=== PATIENT | male | born 1975 | race African-American/Black ===

== ENCOUNTER 2018-03-27 08:23 | Observation (INO) ==
[2018-03-27 09:21] LABS: Basophils % 0.3 % (0.0-0.8); Eosinophils # 0.1 10*3/uL (0.0-0.87); Eosinophils % 1.1 % (0.00-10.9); Hematocrit 43.4 VOL% (42.0-52.0); Hemoglobin 15.5 GM/DL (14.0-18.0); Immature Granulocytes % 0.3 %; Immature Granulocytes Absolute 0.02 #; Lymphocytes # 1.7 10*3/uL (1.4-4.0); Lymphocytes % 24.5 % (21.2-54.2); Mean Corpuscular HGB Conc 35.7 GM/DL (32-36); Mean Corpuscular Hemoglobin 33 PG (27-34); Mean Corpuscular Volume 91.6 FL (87-102); Mean Platelet Volume 9.2 FL (9.6-12.0); Monocytes # 0.8 10*3/uL (0.11-0.8); Monocytes % 10.8 % (1.7-12.7); Neutrophils # 4.4 10*3/uL (1.4-7.4); Platelet Count 250 T/CUMM (130-400); Red Blood Count 4.74 MC/CUMM (3.8-5.5)
[2018-03-27 09:26] LABS: PT Patient Result 10.5 SECS; Partial Thromboplastin Time 27.2 SECS (0-40)
[2018-03-27 09:35] LABS: Alanine Aminotransferase 25 U/L (16-61); Albumin 3.8 G/DL (3.4-5.0); Alkaline Phosphatase 58 U/L (45-117); Aspartate Amino Transferase 24 U/L (0-37); Blood Urea Nitrogen 14 MG/DL (7-18); Calcium 9.3 MG/DL (8.5-10.1); Glucose 103 MG/DL (74-106); Osmolality,Calculated 281.3 MOS/KG (273-304); Potassium 3.8 MMOL/L (3.5-5.1); Sodium 141 MMOL/L (136-145); Total Protein 7.1 G/DL (6.4-8.3); Troponin I Only < 0.015 NG/ML (0.00-0.045)
[2018-03-27 10:49] LABS: Apearance,Urine CLEAR (Clear); Bilirubin,Urine Negative (Negative); Blood, Urine Negative (Negative); Glucose,Urine (UA) Negative (Negative); Ketones,Urine 20 mg/dL (Negative); Mucus,Urine Occasional /LPF (Occasional); Nitrite,Urine Negative (Negative); Protein,Urine Negative; RBC,Urine 1 /HPF (0-4); Squamous Epithelial Cell,Urine Occasional /HPF (0-10); Urine Color Yellow (Yellow); Urine Specific Gravity 1.011 (1.001-1.035); Urine Urobilinogen < 2.0 EU/DL (0.2-1.0); WBC,Urine <1 /HPF (0-6)
[2018-03-27 10:54] LABS: Barbiturates Screen,Urine Negative (Negative); Benzodiazepines Screen,Urine Negative (Negative); Cannabinoid Screen,Urine Positive (Negative); Opiate Screen,Urine Negative (Negative); Phencyclidine Screen,Urine Negative (Negative)
[2018-03-27] MEDS ORDERED: ONDANSETRON 4 MG/2 ML VIAL IV PRN (12:56)
[2018-03-27 13:46] LABS: Risk Ratio 3.13; VLDL CHOLESTEROL 18.6 MG/DL
[2018-03-27] MEDS: ACETAMINOPHEN 325 MG TABLET PO PRN (19:25)
[2018-03-28 02:14] LABS: Basophils % 0.4 % (0.0-0.8); Eosinophils # 0.1 10*3/uL (0.0-0.87); Eosinophils % 1.8 % (0.00-10.9); Hematocrit 43.8 VOL% (42.0-52.0); Hemoglobin 15.3 GM/DL (14.0-18.0); Immature Granulocytes % 0.3 %; Immature Granulocytes Absolute 0.02 #; Lymphocytes # 2.4 10*3/uL (1.4-4.0); Lymphocytes % 34.4 % (21.2-54.2); Mean Corpuscular HGB Conc 34.9 GM/DL (32-36); Mean Corpuscular Hemoglobin 32 PG (27-34); Mean Corpuscular Volume 92.8 FL (87-102); Mean Platelet Volume 8.8 FL (9.6-12.0); Monocytes # 0.7 10*3/uL (0.11-0.8); Monocytes % 9.7 % (1.7-12.7); Neutrophils # 3.8 10*3/uL (1.4-7.4); Neutrophils % 53.4 % (38.7-73.9); Platelet Count 230 T/CUMM (130-400); Red Blood Count 4.72 MC/CUMM (3.8-5.5); Red Cell Distribution Width 13.2 % (9.3-17.3); White Blood Count 7.1 T/CUMM (4-12)
[2018-03-28 02:23] LABS: Calcium 8.7 MG/DL (8.5-10.1); Osmolality,Calculated 283.1 MOS/KG (273-304)
[2018-03-28] MEDS: ACETAMINOPHEN 325 MG TABLET PO PRN ×2 (03:17→22:00)
[2018-03-28] MEDS: ASPIRIN EC 81 MG TABLET PO SCH (10:26)
[2018-03-28] MEDS: PANTOPRAZOLE 40 MG TABLET PO SCH (10:26)
[2018-03-29 05:18] LABS: Basophils % 0.4 % (0.0-0.8); Eosinophils # 0.2 10*3/uL (0.0-0.87); Eosinophils % 2.5 % (0.00-10.9); Hematocrit 43.5 VOL% (42.0-52.0); Hemoglobin 15.6 GM/DL (14.0-18.0); Immature Granulocytes % 0.3 %; Immature Granulocytes Absolute 0.02 #; Lymphocytes % 30.1 % (21.2-54.2); Mean Corpuscular HGB Conc 35.9 GM/DL (32-36); Mean Corpuscular Hemoglobin 33 PG (27-34); Mean Platelet Volume 9.1 FL (9.6-12.0); Monocytes # 0.7 10*3/uL (0.11-0.8); Monocytes % 9.9 % (1.7-12.7); Neutrophils # 3.8 10*3/uL (1.4-7.4); Neutrophils % 56.8 % (38.7-73.9); Platelet Count 253 T/CUMM (130-400); Red Blood Count 4.78 MC/CUMM (3.8-5.5); Red Cell Distribution Width 13.2 % (9.3-17.3); White Blood Count 6.7 T/CUMM (4-12)
[2018-03-29 05:32] LABS: Calcium 8.6 MG/DL (8.5-10.1); Osmolality,Calculated 282.1 MOS/KG (273-304); Potassium 3.9 MMOL/L (3.5-5.1)
[2018-03-29 07:37] VITALS: BP 123/78
[2018-03-29] MEDS: ASPIRIN EC 81 MG TABLET PO SCH ×2 (08:05→08:06)
[2018-03-29] MEDS: PANTOPRAZOLE 40 MG TABLET PO SCH (08:06)
== END 2018-03-29 11:45 | disposition home or self-care (01) ==
LOC: EDUNIT# → EDBD → N.EDINP 08:23 → N.ED 08:23 → N.5E 11:27 → N.3W 13:53
PROVIDERS: ADMIT Internal Medicine; ATTEND Internal Medicine

== ENCOUNTER 2018-05-19 14:12 | Observation (INO) ==
[2018-05-19 15:19] LABS: Basophils % 0.2 % (0.0-0.8); Eosinophils # 0.1 10*3/uL (0.0-0.87); Eosinophils % 0.9 % (0.00-10.9); Hematocrit 41.5 VOL% (42.0-52.0); Hemoglobin 14.3 GM/DL (14.0-18.0); Immature Granulocytes % 0.4 %; Immature Granulocytes Absolute 0.04 #; Lymphocytes % 11.2 % (21.2-54.2); Mean Corpuscular HGB Conc 34.5 GM/DL (32-36); Mean Corpuscular Hemoglobin 32 PG (27-34); Mean Corpuscular Volume 92.8 FL (87-102); Mean Platelet Volume 8.8 FL (9.6-12.0); Monocytes # 0.8 10*3/uL (0.11-0.8); Monocytes % 8.5 % (1.7-12.7); Neutrophils # 7.2 10*3/uL (1.4-7.4); Neutrophils % 78.8 % (38.7-73.9); Platelet Count 233 T/CUMM (130-400); Red Blood Count 4.47 MC/CUMM (3.8-5.5); White Blood Count 9.1 T/CUMM (4-12)
[2018-05-19 15:28] LABS: INR 0.9; Partial Thromboplastin Time 25.2 SECS (0-40)
[2018-05-19 15:42] LABS: Barbiturates Screen,Urine Negative (Negative); Benzodiazepines Screen,Urine Negative (Negative); Cannabinoid Screen,Urine Positive (Negative); Opiate Screen,Urine Negative (Negative); Phencyclidine Screen,Urine Negative (Negative)
[2018-05-19 15:43] LABS: Alanine Aminotransferase 24 U/L (16-61); Albumin 3.9 G/DL (3.4-5.0); Alkaline Phosphatase 64 U/L (45-117); Aspartate Amino Transferase 21 U/L (0-37); Blood Urea Nitrogen 13 MG/DL (7-18); Calcium 8.7 MG/DL (8.5-10.1); Glucose 101 MG/DL (74-106); Osmolality,Calculated 285.8 MOS/KG (273-304); Sodium 144 MMOL/L (136-145); Total Protein 6.6 G/DL (6.4-8.3)
[2018-05-19] MEDS ORDERED: ASPIRIN EC 325 MG TABLET PO STA (16:20)
[2018-05-19] MEDS ORDERED: ASPIRIN 325 MG TABLET ONE ×2 (16:24→16:26)
[2018-05-19] MEDS ORDERED: ASPIRIN CHEW 81 MG TABLET PO STA (16:26)
[2018-05-19] MEDS ORDERED: ONDANSETRON 4 MG/2 ML VIAL IV PRN (17:09)
[2018-05-19] MEDS ORDERED: LABETALOL 100 MG/20 ML VIAL IV PRN (17:13)
[2018-05-19 18:05] LABS: Risk Ratio 2.63; VLDL CHOLESTEROL 15.2 MG/DL
[2018-05-19] MEDS: ATORVASTATIN 40 MG TABLET PO SCH (20:31)
[2018-05-19] MEDS: SODIUM CHLORIDE 0.9% 1,000 ML IV SCH (20:31)
[2018-05-19] MEDS: ACETAMINOPHEN 325 MG TABLET PO PRN (20:38)
[2018-05-20] MEDS: SODIUM CHLORIDE 0.9% 1,000 ML IV SCH ×2 (04:20→15:57)
[2018-05-20 05:39] LABS: Calcium 8.4 MG/DL (8.5-10.1); Osmolality,Calculated 286.7 MOS/KG (273-304); Potassium 3.9 MMOL/L (3.5-5.1)
[2018-05-20] MEDS: POLYETHYLENE GLYCOL POWDER 17 GM PACK PO SCH (08:11)
[2018-05-20] MEDS: PANTOPRAZOLE 40 MG TABLET PO SCH (08:12)
[2018-05-20] MEDS: ASPIRIN EC 81 MG TABLET PO SCH (08:12)
[2018-05-20] MEDS ORDERED: NITROGLYCERIN SL 0.4 MG TABLET SL ONE (15:29)
[2018-05-20] MEDS: LOSARTAN 25 MG TABLET PO SCH (15:44)
[2018-05-20] MEDS: amLODIPine 5 MG TABLET PO SCH (15:44)
[2018-05-20] MEDS ORDERED: cloNIDine 0.1 MG TABLET PO ONE (15:46)
[2018-05-20] MEDS: ATORVASTATIN 40 MG TABLET PO SCH (21:08)
[2018-05-20] MEDS: ACETAMINOPHEN 325 MG TABLET PO PRN (21:08)
[2018-05-21] MEDS: ASPIRIN EC 81 MG TABLET PO SCH (09:28)
[2018-05-21] MEDS: PANTOPRAZOLE 40 MG TABLET PO SCH (09:29)
[2018-05-21] MEDS: amLODIPine 5 MG TABLET PO SCH (09:29)
[2018-05-21] MEDS: LOSARTAN 25 MG TABLET PO SCH (09:29)
[2018-05-21] MEDS: POLYETHYLENE GLYCOL POWDER 17 GM PACK PO SCH (09:32)
[2018-05-21] MEDS ORDERED: ALUM/MAG/SIMETH/LIDO VISC 1:1 30 ML BOTTLE PO ONE (11:16)
[2018-05-21] MEDS: NITROGLYCERIN SL 0.4 MG TABLET SL PRN ×2 (11:25→11:30)
[2018-05-21] MEDS ORDERED: LOSARTAN 50 MG TABLET PO ONE (11:33)
[2018-05-21] MEDS ORDERED: LOSARTAN 50 MG TABLET ONE (11:35)
[2018-05-21] MEDS ORDERED: CARVEDILOL 12.5 MG TABLET ONE (11:35)
[2018-05-21] MEDS: CARVEDILOL 3.125 MG TABLET PO SCH ×2 (11:40→18:22)
[2018-05-21 11:57] LABS: ABG Base Excess -0.3 MMOL/L (-2.5-2.5); ABG HCO3 24.2 MMOL/L (20-26); ABG Oxygen Saturation 99.3 % (95-100); ABG PCO2 23.1 MM HG (35-48); ABG PH 7.545 (7.35-7.45); ABG TCO2 16.6 MMOL/L (23-27)
[2018-05-21] MEDS: ACETAMINOPHEN 325 MG TABLET PO PRN (20:52)
[2018-05-21] MEDS: ATORVASTATIN 40 MG TABLET PO SCH (21:29)
[2018-05-22] MEDS: ACETAMINOPHEN 325 MG TABLET PO PRN ×2 (05:38→08:58)
[2018-05-22 07:47] VITALS: BP 150/99
[2018-05-22] MEDS: amLODIPine 5 MG TABLET PO SCH (08:56)
[2018-05-22] MEDS: PANTOPRAZOLE 40 MG TABLET PO SCH (08:57)
[2018-05-22] MEDS: CARVEDILOL 3.125 MG TABLET PO SCH (08:57)
[2018-05-22] MEDS: ASPIRIN EC 81 MG TABLET PO SCH (08:57)
[2018-05-22] MEDS: POLYETHYLENE GLYCOL POWDER 17 GM PACK PO SCH (08:59)
[2018-05-22] MEDS ORDERED: LOSARTAN 50 MG TABLET PO SCH (09:00)
[2018-05-22] MEDS: LOSARTAN 25 MG TABLET PO SCH (09:03)
== END 2018-05-22 10:45 ==
LOC: EDUNIT# → EDBD → N.EDINP 14:12 → N.ED 14:12 → N.4E 19:18 → N.3W 05-20 11:27
PROVIDERS: ADMIT Internal Medicine; ATTEND Internal Medicine

== ENCOUNTER 2019-01-07 12:48 | Observation (INO) ==
[2019-01-07 13:32] LABS: Basophils % 0.3 % (0.0-0.8); Eosinophils # 0.1 10*3/uL (0.0-0.87); Eosinophils % 1.1 % (0.00-10.9); Hematocrit 46.2 VOL% (42.0-52.0); Hemoglobin 15.7 GM/DL (14.0-18.0); Immature Granulocytes % 0.1 %; Immature Granulocytes Absolute 0.01 #; Lymphocytes # 1.5 10*3/uL (1.4-4.0); Lymphocytes % 19.9 % (21.2-54.2); Mean Corpuscular Hemoglobin 31 PG (27-34); Mean Corpuscular Volume 91.5 FL (87-102); Mean Platelet Volume 8.8 FL (9.6-12.0); Monocytes # 0.7 10*3/uL (0.11-0.8); Monocytes % 9.2 % (1.7-12.7); Neutrophils # 5.2 10*3/uL (1.4-7.4); Neutrophils % 69.4 % (38.7-73.9); Platelet Count 249 T/CUMM (130-400); Red Blood Count 5.05 MC/CUMM (3.8-5.5); Red Cell Distribution Width 14.2 % (9.3-17.3); White Blood Count 7.5 T/CUMM (4-12)
[2019-01-07 13:58] LABS: Albumin 4.1 G/DL (3.4-5.0); Bilirubin,Total 0.9 MG/DL (0.2-1.0); Calcium 8.8 MG/DL (8.5-10.1); Osmolality,Calculated 283.3 MOS/KG (273-304); Potassium 3.9 MMOL/L (3.5-5.1); Total Protein 7.7 G/DL (6.4-8.3)
[2019-01-07] MEDS ORDERED: hydrALAZINE 20 MG/1 ML VIAL IV STA (15:00)
[2019-01-07] MEDS ORDERED: ACETAMINOPHEN 325 MG TABLET PO PRN (16:37)
[2019-01-07] MEDS ORDERED: ONDANSETRON 4 MG/2 ML VIAL IV PRN (16:37)
[2019-01-07] MEDS ORDERED: LOSARTAN 50 MG TABLET PO SCH ×2 (17:00→17:49)
[2019-01-07] MEDS ORDERED: SODIUM CHLORIDE 0.9% 1,000 ML IV SCH (17:00)
[2019-01-07] MEDS ORDERED: amLODIPine 5 MG TABLET PO SCH (17:00)
[2019-01-07] MEDS ORDERED: ASPIRIN CHEW 81 MG TABLET PO STA (17:50)
[2019-01-07] MEDS ORDERED: ENOXAPARIN 40 MG/0.4 ML SYRINGE SUBCUT SCH (21:00)
[2019-01-07] MEDS ORDERED: CARVEDILOL 3.125 MG TABLET PO SCH (21:00)
[2019-01-07] MEDS: SODIUM CHLORIDE 0.45% 1,000 ML IV SCH (21:35)
[2019-01-08] MEDS: CARVEDILOL 3.125 MG TABLET PO SCH ×2 (00:29→09:12)
[2019-01-08] MEDS ORDERED: oxyCODONE/ACETAMINOPHEN 5-325 MG TABLET PO STA (00:44)
[2019-01-08 05:00] LABS: Basophils % 0.3 % (0.0-0.8); Eosinophils # 0.1 10*3/uL (0.0-0.87); Eosinophils % 2.3 % (0.00-10.9); Hematocrit 44.2 VOL% (42.0-52.0); Hemoglobin 14.8 GM/DL (14.0-18.0); Immature Granulocytes % 0.3 %; Immature Granulocytes Absolute 0.02 #; Lymphocytes # 1.9 10*3/uL (1.4-4.0); Mean Corpuscular HGB Conc 33.5 GM/DL (32-36); Mean Corpuscular Hemoglobin 31 PG (27-34); Mean Corpuscular Volume 92.3 FL (87-102); Mean Platelet Volume 8.9 FL (9.6-12.0); Monocytes # 0.9 10*3/uL (0.11-0.8); Monocytes % 14.1 % (1.7-12.7); Neutrophils # 3.2 10*3/uL (1.4-7.4); Platelet Count 238 T/CUMM (130-400); Red Blood Count 4.79 MC/CUMM (3.8-5.5); Red Cell Distribution Width 14.3 % (9.3-17.3); White Blood Count 6.2 T/CUMM (4-12)
[2019-01-08 05:36] LABS: Calcium 8.6 MG/DL (8.5-10.1); Osmolality,Calculated 281.3 MOS/KG (273-304)
[2019-01-08] MEDS: SODIUM CHLORIDE 0.45% 1,000 ML IV SCH (08:51)
[2019-01-08] MEDS ORDERED: PANTOPRAZOLE 40 MG TABLET PO SCH (09:00)
[2019-01-08] MEDS ORDERED: ASPIRIN CHEW 81 MG TABLET PO SCH (09:00)
[2019-01-08 11:22] VITALS: BP 131/82
== END 2019-01-08 16:46 ==
LOC: N.EDINP 12:48 → N.ED 12:48 → N.EDINP 01-08 11:23
PROVIDERS: ADMIT Internal Medicine; ATTEND Internal Medicine